=== PATIENT | female | born 1990 | race Caucasian/White ===

== ENCOUNTER 2017-02-10 18:55 | Emergency (ER) | payer OTHER ==
[~2017-02-10] VITALS: Ht 162.6 cm; Wt 103.0 kg
[~2017-02-10 18:55] MED LIST: FERR-63 PO; IBUP-779 PO; PREN-88 PO
[2017-02-10] MEDS ORDERED: SODIUM CHLORIDE 0.9% 1,000 ML IV ONE (20:40)
[2017-02-10] MEDS ORDERED: KETOROLAC 30MG/ML VIAL IV STA (20:40)
[2017-02-10 20:56] LABS: BASOPHILS % 0.6 % (0.0-2.0); DIFFERENTIAL COMMENT 0; EOSINOPHILS % 1.9 % (0.0-5.0); HEMOGLOBIN. 12.6 g/dL (12.0-16.0); LYMPHOCYTES % 38.3 % (20.0-50.0); MEAN CORPUSCULAR HGB CONC 33.3 g/dL (31.0-37.0); MEAN CORPUSCULAR VOLUME 75.2 fL (81.0-99.0); MEAN PLATELET VOLUME 7.5 fl (7.4-10.4); MONOCYTES % 9.1 % (2.0-8.0); NEUTROPHILS % 50.1 % (40.0-76.0); PLATELET 285 x1000/uL (130-400); RED BLOOD CELL COUNT 5.05 mill/uL (4.2-5.4); RED CELL DISTRIBUTION WIDTH 14.7 % (11.6-14.6); WHITE BLOOD COUNT 9.4 x1000/uL (4.5-11.0)
[2017-02-10 21:02] LABS: ANION GAP 13; CALCIUM 8.6 mg/dL (8.5-10.1); CARBON DIOXIDE 26 mEq/L (21-32); CHLORIDE 106 mEq/L (98-107); INDEX HEMOLYSI 1 (1-3); INDEX ICTERIC 1 (1-4); INDEX LIPEMIC 1 (1-3); UREA NITROGEN BLOOD 11 mg/dL (7-21)
[2017-02-10 21:07] LABS: ALANINE AMINOTRANSFERASE 67 IU/L (13-61); eGFR > 60 mL/min (>60)
[2017-02-10 21:09] LABS: HCG SCREEN NEGATIVE
[2017-02-10 21:10] LABS: TROPONIN I < 0.02 ng/mL (0.00-0.04)
[2017-02-10 22:40] VITALS: BP 112/76
== END 2017-02-10 22:40 | disposition home or self-care (01) ==
LOC: ER 18:56
DX: R07.9 Chest pain, unspecified (principal); R51 Headache; R06.02 Shortness of breath; R11.0 Nausea
CPT/HCPCS: 36415; 71010; 80053; 84484; 84703; 85025; 85379; 93005; 96361; 96374; 99285; J1885; J7030; Z7610

== ENCOUNTER 2018-01-22 21:49 | Emergency (ER) | payer MEDICAID, OTHER | END 2018-01-23 01:59 | disposition left against medical advice (07) | LOC: ER 21:49 | DX: R10.9 Unspecified abdominal pain (principal); Z53.21 Procedure and treatment not carried out due to patient leaving prior to being seen by health care provider ==

== ENCOUNTER 2018-04-26 09:53 | Emergency (ER) | payer MEDICAID ==
[~2018-04-26] VITALS: Ht 160 cm; Wt 105.0 kg
[2018-04-26 12:06] LABS: BASOPHILS % 0.4 % (0.0-2.0); EOSINOPHILS % 0.9 % (0.0-5.0); HEMATOCRIT. 41.6 % (36.0-48.0); HEMOGLOBIN. 13.8 g/dL (12.0-16.0); LYMPHOCYTES % 32.4 % (20.0-50.0); MEAN CORPUSCULAR HEMOGLOBIN 25.1 pg (28.0-32.0); MEAN CORPUSCULAR VOLUME 75.9 fL (81.0-99.0); MEAN PLATELET VOLUME 7.7 fl (7.4-10.4); MONOCYTES % 6.8 % (2.0-8.0); NEUTROPHILS % 59.5 % (40.0-76.0); PLATELET 348 x1000/uL (130-400); RED BLOOD CELL COUNT 5.49 mill/uL (4.2-5.4); RED CELL DISTRIBUTION WIDTH 14.7 % (11.6-14.6)
[2018-04-26 12:09] LABS: CHLORIDE 104 mEq/L (98-107)
[2018-04-26 12:11] LABS: PROTHROMBIN TIME 9.6 sec (9.1-11.1)
[2018-04-26 12:35] LABS: B-HCG QUANTITATIVE 48834 mIU/mL (<3)
[2018-04-26 13:31] VITALS: BP 113/65
[2018-04-26 13:44] LABS: CLARITY URINE CLEAR (CLEAR); COLOR URINE YELLOW (YELLOW); KETONES URINE NEGATIVE (NEGATIVE); LEUKOCYTE ESTERASE URINE NEGATIVE (NEGATIVE); NITRITE URINE NEGATIVE (NEGATIVE); OCCULT BLOOD URINE NEGATIVE (NEGATIVE); PROTEIN URINE NEGATIVE (NEGATIVE)
[2018-04-26] MEDS ORDERED: ACETAMINOPHEN 325MG TABLET PO ONE (14:00)
== END 2018-04-26 14:14 | disposition home or self-care (01) ==
LOC: ER 10:02
DX: O26.891 Other specified pregnancy related conditions, first trimester (principal); R10.9 Unspecified abdominal pain; Z3A.01 Less than 8 weeks gestation of pregnancy
CPT/HCPCS: 36415; 76801; 76817; 80053; 81003; 83690; 84702; 85025; 85610; 99285; Z7610

== ENCOUNTER 2018-10-24 21:24 | Observation (INO) | payer MEDICAID ==
[~2018-10-24] VITALS: Ht 160 cm; Wt 108.0 kg
[2018-10-24 23:16] LABS: CLARITY URINE CLEAR (CLEAR); COLOR URINE YELLOW (YELLOW); KETONES URINE NEGATIVE (NEGATIVE); LEUKOCYTE ESTERASE URINE NEGATIVE (NEGATIVE); NITRITE URINE NEGATIVE (NEGATIVE); OCCULT BLOOD URINE NEGATIVE (NEGATIVE); PROTEIN URINE NEGATIVE (NEGATIVE); SPECIFIC GRAVITY URINE 1.026 (1.005-1.030); UROBILINOGEN URINE 0.2 E.U./dL (0.2-1.0)
== END 2018-10-24 23:50 | disposition home or self-care (01) ==
LOC: 8 EST LDRP 21:24
PROVIDERS: ADMIT Obstetrics & Gynecology; ATTEND Obstetrics & Gynecology
DX: O62.9 Abnormality of forces of labor, unspecified (principal); Z3A.35 35 weeks gestation of pregnancy
CPT/HCPCS: 81003; 99281; G0378

== ENCOUNTER 2018-11-14 17:26 | Observation (INO) | payer MEDICAID ==
[~2018-11-14] VITALS: Ht 160 cm; Wt 112.9 kg
[~2018-11-14 17:26] MED LIST changes: -IBUP-779 PO
[2018-11-14 18:29] LABS: CLARITY URINE CLEAR (CLEAR); COLOR URINE YELLOW (YELLOW); KETONES URINE NEGATIVE (NEGATIVE); LEUKOCYTE ESTERASE URINE NEGATIVE (NEGATIVE); NITRITE URINE NEGATIVE (NEGATIVE); OCCULT BLOOD URINE TRACE (NEGATIVE); PH URINE 5.5 (4.5-8.0); PROTEIN URINE NEGATIVE (NEGATIVE); SPECIFIC GRAVITY URINE 1.023 (1.005-1.030); UROBILINOGEN URINE 0.2 E.U./dL (0.2-1.0)
[2018-11-14] MEDS ORDERED: LACTATED RINGERS 1,000 ML IV SCH (18:30)
[2018-11-14] MEDS ORDERED: ACETAMINOPHEN 500MG TABLET PO NR (18:30)
[2018-11-14] MEDS ORDERED: ONDANSETRON HCL 4MG/2ML INJ IV NR (18:30)
[2018-11-14] MEDS ORDERED: POTASSIUM CHLORIDE 20MEQ TABLET SR PO ONE (21:45)
== END 2018-11-14 22:30 | disposition home or self-care (01) ==
LOC: 8 EST LDRP 17:26
PROVIDERS: ADMIT Obstetrics & Gynecology; ATTEND Obstetrics & Gynecology
DX: O26.893 Other specified pregnancy related conditions, third trimester (principal); R10.9 Unspecified abdominal pain; Z3A.37 37 weeks gestation of pregnancy
CPT/HCPCS: 76857; 81003; 96374; 99281; G0378; J2405; 96360; 96361

== ENCOUNTER 2018-11-24 04:55 | Inpatient (IN) | payer MEDICAID ==
[~2018-11-24] VITALS: Ht 160 cm; Wt 113.4 kg
[2018-11-24] MEDS ORDERED: DEXT 5%/LR + PITOCIN 20UNITS/L 1,000 ML IV SCH ×2 (06:12→19:07)
[2018-11-24] MEDS ORDERED: METHYLERGONOVINE MALEATE 0.2 MG/ML IM PRN (06:15)
[2018-11-24] MEDS ORDERED: NALOXONE HCL 0.4 MG/ML 1ML VIAL IM PRN (06:15)
[2018-11-24 07:08] LABS: BASOPHILS % 0.3 % (0.0-2.0); EOSINOPHILS % 0.5 % (0.0-5.0); HEMATOCRIT. 37.3 % (36.0-48.0); HEMOGLOBIN. 12.1 g/dL (12.0-16.0); LYMPHOCYTES % 33.3 % (20.0-50.0); MEAN CORPUSCULAR HEMOGLOBIN 25.4 pg (28.0-32.0); MEAN CORPUSCULAR VOLUME 78.1 fL (81.0-99.0); MEAN PLATELET VOLUME 8.9 fl (7.4-10.4); MONOCYTES % 7.4 % (2.0-8.0); NEUTROPHILS % 58.5 % (40.0-76.0); PLATELET 218 x1000/uL (130-400); RED BLOOD CELL COUNT 4.78 mill/uL (4.2-5.4); RED CELL DISTRIBUTION WIDTH 16.7 % (11.6-14.6)
[2018-11-24 07:10] LABS: CLARITY URINE CLEAR (CLEAR); COLOR URINE YELLOW (YELLOW); KETONES URINE TRACE (NEGATIVE); LEUKOCYTE ESTERASE URINE NEGATIVE (NEGATIVE); NITRITE URINE NEGATIVE (NEGATIVE); OCCULT BLOOD URINE TRACE (NEGATIVE); PROTEIN URINE NEGATIVE (NEGATIVE); SPECIFIC GRAVITY URINE 1.022 (1.005-1.030); UROBILINOGEN URINE 0.2 E.U./dL (0.2-1.0)
[2018-11-24] MEDS: LACTATED RINGERS 1,000 ML IV SCH ×3 (07:10→17:28)
[2018-11-24 07:16] LABS: INR 0.9; PARTIAL THROMBOPLASTIN TIME 28.2 sec (23.4-31.0)
[2018-11-24 07:17] LABS: PROTHROMBIN TIME 8.9 sec (9.1-11.1)
[2018-11-24 07:29] LABS: *AMPHETAMINES SCREEN URINE NEGATIVE (NEGATIVE); *BARBITURATES SCREEN URINE NEGATIVE (NEGATIVE); *COCAINE SCREEN URINE NEGATIVE (NEGATIVE)
[2018-11-24 07:30] LABS: *BENZODIAZEPINES SCREEN URINE NEGATIVE (NEGATIVE); CANNABINOID URINE SCREEN NEGATIVE (NEGATIVE); METHADONE URINE SCREEN NEGATIVE (NEGATIVE); OPIATES URINE SCREEN NEGATIVE (NEGATIVE); PHENCYCLIDINE URINE SCREEN NEGATIVE (NEGATIVE)
[2018-11-24] MEDS ORDERED: CITRIC ACID/SODIUM CITRATE SOLN 30ML UDC PO SCH (07:45)
[2018-11-24 07:46] LABS: HEPATITIS B SURFACE ANTIGEN NEGATIVE
[2018-11-24] MEDS ORDERED: MORPHINE SULFATE/PF 1MG/ML 10ML AMP ONE (17:06)
[2018-11-24] MEDS ORDERED: EPHEDRINE SULFATE 50MG/ML VIAL ONE (17:10)
[2018-11-24] MEDS ORDERED: SODIUM CHLORIDE 0.9% 10ML VIAL ONE ×2 (17:10→17:57)
[2018-11-24] MEDS ORDERED: GLYCOPYRROLATE 0.2 MG/ML 2ML VIAL ONE (17:44)
[2018-11-24] MEDS ORDERED: CEFAZOLIN SODIUM 1000MG/VIAL ONE (17:57)
[2018-11-24] MEDS ORDERED: ONDANSETRON HCL 4MG/2ML INJ ONE (18:00)
[2018-11-24] MEDS ORDERED: METOCLOPRAMIDE HCL 10MG/2ML VIAL ONE (18:01)
[2018-11-24] MEDS ORDERED: OXYTOCIN 10 UNITS/ML 1ML ONE (18:37)
[2018-11-24] MEDS ORDERED: KETOROLAC 60MG/2ML VIAL IM ONE (19:11)
[2018-11-24] MEDS ORDERED: IBUPROFEN 400MG TABLET PO PRN (19:15)
[2018-11-24] MEDS ORDERED: BISACODYL 10MG SUPP PR PRN (19:15)
[2018-11-24] MEDS ORDERED: RHO(D) IMMUNE GLOBULIN 300 MCG/SYR IM PRN (19:15)
[2018-11-24] MEDS ORDERED: HYDROMORPHONE HCL/PF 2MG/ML CPJ IM PRN (19:15)
[2018-11-24] MEDS ORDERED: ACETAMINOPHEN WITH CODEINE 300/30MG TABLET PO PRN (19:15)
[2018-11-24 22:30] VITALS: BP 124/65
[2018-11-24 23:00] VITALS: BP 126/66
[2018-11-24 23:30] VITALS: BP 112/68
[2018-11-25] MEDS ORDERED: DIPHENHYDRAMINE 50MG/ML VIAL IV NR (05:30)
[2018-11-25] MEDS ORDERED: DIPHENHYDRAMINE 50MG/ML VIAL IV PRN ×2 (05:45→07:45)
[2018-11-25 07:16] LABS: BASOPHILS % 0.3 % (0.0-2.0); EOSINOPHILS % 0.1 % (0.0-5.0); HEMATOCRIT. 32.9 % (36.0-48.0); HEMOGLOBIN. 10.8 g/dL (12.0-16.0); LYMPHOCYTES % 16.9 % (20.0-50.0); MEAN CORPUSCULAR HEMOGLOBIN 25.7 pg (28.0-32.0); MEAN CORPUSCULAR VOLUME 78.3 fL (81.0-99.0); MEAN PLATELET VOLUME 8.6 fl (7.4-10.4); MONOCYTES % 6.8 % (2.0-8.0); NEUTROPHILS % 75.9 % (40.0-76.0); PLATELET 180 x1000/uL (130-400); RED CELL DISTRIBUTION WIDTH 16.7 % (11.6-14.6)
[2018-11-25 08:00] VITALS: BP 110/65
[2018-11-25] MEDS: IBUPROFEN 800MG TABLET PO PRN ×2 (13:57→18:57)
[2018-11-25 14:00] VITALS: BP 110/73
[2018-11-25 20:00] VITALS: BP 116/58
[2018-11-26 00:01] VITALS: BP 99/58
[2018-11-26 04:05] VITALS: BP 126/70
[2018-11-26] MEDS: IBUPROFEN 800MG TABLET PO PRN ×2 (04:10→13:59)
[2018-11-26 08:30] VITALS: BP 126/70
[2018-11-26 15:30] VITALS: BP 107/67
[2018-11-26 22:00] VITALS: BP 120/71
[2018-11-27] MEDS: IBUPROFEN 800MG TABLET PO PRN ×2 (01:06→08:43)
[2018-11-27 06:00] VITALS: BP 115/69
[2018-11-27 07:42] VITALS: BP 114/77
== END 2018-11-27 13:35 | disposition home or self-care (01) | DRG 540 ==
LOC: INTOOBSV 04:55 → 8 EST LDRP 04:55 → OBSVTOIN 04:55 → 8 EST LDRP 07:00 → 8EST 23:10
PROVIDERS: ADMIT Obstetrics & Gynecology; ATTEND Obstetrics & Gynecology
PROC: 10D00Z1 Extraction of Products of Conception, Low, Open Approach (ICD-10-PCS; principal; 2018-11-24)
PROC: 3E0R3BZ Introduction of Anesthetic Agent into Spinal Canal, Percutaneous Approach (ICD-10-PCS; 2018-11-24)
DX: O34.211 Maternal care for low transverse scar from previous cesarean delivery (principal); E66.01 Morbid (severe) obesity due to excess calories; D25.2 Subserosal leiomyoma of uterus; O34.13 Maternal care for benign tumor of corpus uteri, third trimester; O99.214 Obesity complicating childbirth; Z3A.38 38 weeks gestation of pregnancy; Z37.0 Single live birth; Z68.41 Body mass index [BMI] 40.0-44.9, adult
CPT/HCPCS: 36415; 80305; 86592; 86703; 86762; 86850; 86900; 86920; 87340; 88307; 99281; J0690; J1200; J1885; J2274; J2405; J2590; J2765; J3490; J7120

== ENCOUNTER 2020-10-27 23:17 | Emergency (ER) | payer MEDICAID ==
[~2020-10-27] VITALS: Ht 157.5 cm; Wt 109.0 kg
[~2020-10-27 23:17] MED LIST changes: -PREN-88 PO
[2020-10-28] MEDS ORDERED: HYDROCODONE/ACETAMINOPHEN 5/325MG TABLET PO ONE (02:00)
[2020-10-28 02:55] LABS: BASOPHILS % 0.6 % (0.0-2.0); EOSINOPHILS % 1.4 % (0.0-5.0); HEMOGLOBIN. 13.3 g/dL (12.0-16.0); LYMPHOCYTES % 42.2 % (20.0-50.0); MEAN CORPUSCULAR HEMOGLOBIN 24.8 pg (28.0-32.0); MEAN CORPUSCULAR VOLUME 76.1 fL (81.0-99.0); MEAN PLATELET VOLUME 8.4 fl (7.4-10.4); MONOCYTES % 8.4 % (2.0-8.0); NEUTROPHILS % 47.4 % (40.0-76.0); PLATELET 336 x1000/uL (130-400); RED BLOOD CELL COUNT 5.39 mill/uL (4.2-5.4); RED CELL DISTRIBUTION WIDTH 15.2 % (11.6-14.6)
[2020-10-28 02:57] LABS: CHLORIDE 106 mEq/L (98-107)
[2020-10-28] MEDS ORDERED: IBUP-2029 MT (05:33)
[2020-10-28 06:00] VITALS: BP 103/72
[2020-10-28 12:52] LABS: CLARITY URINE CLOUDY (CLEAR); COLOR URINE YELLOW (YELLOW); KETONES URINE NEGATIVE (NEGATIVE); LEUKOCYTE ESTERASE URINE NEGATIVE (NEGATIVE); NITRITE URINE NEGATIVE (NEGATIVE); OCCULT BLOOD URINE TRACE (NEGATIVE); PH URINE 5.5 (4.5-8.0); PROTEIN URINE NEGATIVE (NEGATIVE); SPECIFIC GRAVITY URINE 1.028 (1.005-1.030); UROBILINOGEN URINE 0.2 E.U./dL (0.2-1.0)
== END 2020-10-28 06:34 | disposition home or self-care (01) ==
LOC: ER 23:17
DX: G89.29 Other chronic pain (principal); R10.2 Pelvic and perineal pain; D25.9 Leiomyoma of uterus, unspecified; N83.292 Other ovarian cyst, left side; N83.291 Other ovarian cyst, right side; Z98.890 Other specified postprocedural states
CPT/HCPCS: 36415; 76830; 76856; 80053; 81003; 81025; 85025; 93005; 99285